=== PATIENT | male | born 1940 | race Two or more races ===

== ENCOUNTER 2018-06-22 10:38 | Outpatient (CLI) | payer OTHER | END 2018-06-22 12:14 | disposition home or self-care (01) | LOC: EKG 10:38 | DX: I10 Essential (primary) hypertension (principal) ==

== ENCOUNTER 2018-06-23 10:21 | Outpatient (CLI) | payer OTHER | END 2018-06-23 10:29 | disposition home or self-care (01) | LOC: RAD 501 10:21 | DX: Z01.811 Encounter for preprocedural respiratory examination (principal) ==

== ENCOUNTER 2018-10-21 07:04 | Inpatient (IN) | payer OTHER ==
[~2018-10-21] VITALS: Ht 177.8 cm; Wt 63.5 kg
[2018-10-24] MEDS ORDERED: DUI500 PO (08:07)
[2018-10-24] MEDS ORDERED: PERCOCET 5-3251 EACH PO (08:07)
[2018-10-24] MEDS ORDERED: ELIQUIS2.5 MG PO (08:07)
== END 2018-10-24 14:48 | DRG 482 ==
LOC: ER 07:04 → SURH 17:30
PROVIDERS: Orthopaedic Surgery; ADMIT Internal Medicine Cardiovascular Disease
PROC: 0QS736Z Reposition Left Upper Femur with Intramedullary Internal Fixation Device, Percutaneous Approach (ICD-10-PCS; principal; 2018-10-22 15:00)
DX: S72.142A Displaced intertrochanteric fracture of left femur, initial encounter for closed fracture (principal); W18.39XA Other fall on same level, initial encounter; M81.0 Age-related osteoporosis without current pathological fracture

== ENCOUNTER 2018-12-10 11:49 | Outpatient (CLI) | payer OTHER ==
[~2018-12-10 11:49] MED LIST: DUI500 PO; ELIQUIS2.5 MG PO; PERCOCET 5-3251 EACH PO
== END 2018-12-10 14:09 | disposition home or self-care (01) ==
LOC: LAB 11:49
DX: L89.623 Pressure ulcer of left heel, stage 3 (principal)

== ENCOUNTER 2019-05-06 10:35 | Emergency (ER) | payer OTHER ==
[~2019-05-06] VITALS: Ht 172.7 cm; Wt 63.5 kg
== END 2019-05-06 14:22 | disposition home or self-care (01) ==
LOC: ER 10:35
DX: R50.9 Fever, unspecified (principal)

== ENCOUNTER 2019-05-10 09:13 | Emergency (ER) | payer OTHER ==
[~2019-05-10] VITALS: Ht 177.8 cm; Wt 63.5 kg
== END 2019-05-10 18:19 | disposition home or self-care (01) ==
LOC: ER 09:13
DX: K29.60 Other gastritis without bleeding (principal)

== ENCOUNTER 2019-06-17 18:32 | Inpatient (IN) | payer OTHER ==
[~2019-06-17] VITALS: Ht 177.8 cm; Wt 64.4 kg
--- NOTE | 2019-06-17 19:02 | NUR ---
SE RECIBE PTE ALERTA Y ORIENTADO X3,REFIERE QUE CUANDO SE MUEVE LE DUELEN LAS RODILLAS,,REFIERE TENER MUCHO SUENO,REFIERE FAMILIAR QUE LE CHAIDEZ DADO FIEBRE.
--- NOTE | 2019-06-17 19:44 | NUR ---
PACIENTE MASCULINO ALERTA Y ORIENTADO, BAJO MEDIDAS ASEPTICAS SE CANALIZA PACIENTE, GERDA DE EDEMA Y ERITEMA. SE LEIF MUESTRAS DE LABORATORIOS LOPEZ ORDENADO. ORDENES TOMADAS POR RN: SOHAN Y EJECUTADAS POR RN. JOHNSTON.
--- NOTE | 2019-06-17 21:38 | NUR ---
SE ORIENTA A PTE SOBRE PROCESO DE ADMINISTRACION DE MED & MIKIE DE MUESTRAS DE UA & INFLUENZA.
--- NOTE | 2019-06-18 00:36 | NUR ---
SE RECIBE PTE ALERTA Y ORIENTADO X3 EN CAMA CON BARANDAS ELEVADAS. SE RECIBE PTE CANALIZADO AREA GERDA DE EDEMA Y DE ENROJECIMIENTO. PTE EN ESPERA DE SERVANDO MUESTRA DE LAB. LOPEZ ORDEN MEDICA A LAS 4:00AM.
--- NOTE | 2019-06-18 08:33 | NUR ---
EVALUADO POR EL SE ORIENTA SOBRE TRATAMIENTO MEDICO POR MRS. GARCÍA SE LE EXTRAEN MUESTRAS DE SANGE Y SE ENVIAN AL LABORATORIOS Y QUE SE VA A TENER EN OBSERVACION POR 24 HORAS. SE MANTIENE EN OBSERVACION.
--- NOTE | 2019-06-18 15:42 | NUR ---
PT ALERTA Y ORIENTADO X3 ESFERAS EN COMPANIA DE FAMILIAR. SE RECIBE EN CAMA CON BARANDAS ELEVADAS Y FRENOS COLOCADOS. HEPARIN LOCK E IVLFUIDS PATENTES. PT TOELRA TX. PENDIENTE ENTREGA DE U/A. BMP A LAS 6AM EL JAKUB DE MANANA. LUEGO DE ELLO, RE-EVALUCION DE DR COX. PT EN OVERNIGHT. PENDIENTE VISTA DE SKIN TEAM.
--- NOTE | 2019-06-18 23:47 | NUR ---
SE RECIBE PACIENTE ALERTA Y ORIENTADO EN CAMA CON BARANDAS ELEVADAS. SE OBSERVA IVF'S PATENTE GERDA DE EDEMA Y ENROJECIMIENTO BAJANDO UN .9NSS@ 100ML/HR. PENDIENTE CONSULTA CON DR. COX Y LAB EN LA MANANA. SE MANTIENE BAJO OBSERVACION POR CAMBIOS.
--- NOTE | 2019-06-19 07:03 | NUR ---
SE RECIBE PTE DE TURNO ANTERIOR EL CUAL SE ENCUENTRA EN CAMA CON BARANDAS ELEVADAS, PTE PRESENTA AREA DE VENOPUNCION, PATENTE Y GERDA DE EDEMA CON IV FLUID PATENTE 0.9NSS AT 100 ML/HR, PTE PEND A ENTREGA DE UA Y CONSULTA CON DR. COX.
== END 2019-07-09 21:32 | DRG 622 ==
LOC: ER 18:32 → SURH 06-19 09:50 → SURG 06-19 09:50 → SURH 06-23 13:21
PROVIDERS: ADMIT Internal Medicine Cardiovascular Disease
PROC: BT43ZZZ Ultrasonography of Bilateral Kidneys (ICD-10-PCS; 2019-06-19)
PROC: 0T9B70Z Drainage of Bladder with Drainage Device, Via Natural or Artificial Opening (ICD-10-PCS; 2019-06-19)
PROC: BW21ZZZ Computerized Tomography (CT Scan) of Abdomen and Pelvis (ICD-10-PCS; 2019-06-20)
PROC: CP1Z1ZZ Planar Nuclear Medicine Imaging of Musculoskeletal System, All using Technetium 99m (Tc-99m) (ICD-10-PCS; 2019-06-21)
PROC: BW28ZZZ Computerized Tomography (CT Scan) of Head (ICD-10-PCS; 2019-06-21)
PROC: 4A12X4Z Monitoring of Cardiac Electrical Activity, External Approach (ICD-10-PCS; 2019-06-21)
PROC: B246ZZZ Ultrasonography of Right and Left Heart (ICD-10-PCS; 2019-06-22)
PROC: 0W9B30Z Drainage of Left Pleural Cavity with Drainage Device, Percutaneous Approach (ICD-10-PCS; 2019-06-23)
PROC: 8E0ZXY6 Isolation (ICD-10-PCS; 2019-06-23)
PROC: 0W9H3ZX Drainage of Retroperitoneum, Percutaneous Approach, Diagnostic (ICD-10-PCS; 2019-06-24)
PROC: 0JBR0ZZ Excision of Left Foot Subcutaneous Tissue and Fascia, Open Approach (ICD-10-PCS; principal; 2019-06-26)
PROC: 3E0F7GC Introduction of Other Therapeutic Substance into Respiratory Tract, Via Natural or Artificial Opening (ICD-10-PCS; 2019-06-27)
PROC: 4A033R1 Measurement of Arterial Saturation, Peripheral, Percutaneous Approach (ICD-10-PCS; 2019-06-27)
PROC: 0W9B30Z Drainage of Left Pleural Cavity with Drainage Device, Percutaneous Approach (ICD-10-PCS; 2019-06-28)
PROC: 0W9B30Z Drainage of Left Pleural Cavity with Drainage Device, Percutaneous Approach (ICD-10-PCS; 2019-06-30)
DX: E87.1 Hypo-osmolality and hyponatremia (principal); I50.23 Acute on chronic systolic (congestive) heart failure; N17.8 Other acute kidney failure; J90 Pleural effusion, not elsewhere classified; I13.0 Hypertensive heart and chronic kidney disease with heart failure and stage 1 through stage 4 chronic kidney disease, or unspecified chronic kidney disease; J98.11 Atelectasis; I67.82 Cerebral ischemia; C79.51 Secondary malignant neoplasm of bone; L97.423 Non-pressure chronic ulcer of left heel and midfoot with necrosis of muscle; C78.6 Secondary malignant neoplasm of retroperitoneum and peritoneum; B95.61 Methicillin susceptible Staphylococcus aureus infection as the cause of diseases classified elsewhere; I08.0 Rheumatic disorders of both mitral and aortic valves; C61 Malignant neoplasm of prostate; N18.2 Chronic kidney disease, stage 2 (mild); I70.0 Atherosclerosis of aorta; K66.0 Peritoneal adhesions (postprocedural) (postinfection); K59.09 Other constipation; M62.81 Muscle weakness (generalized); N13.5 Crossing vessel and stricture of ureter without hydronephrosis; K57.30 Diverticulosis of large intestine without perforation or abscess without bleeding; E86.0 Dehydration; R33.8 Other retention of urine; Z85.528 Personal history of other malignant neoplasm of kidney; Z08 Encounter for follow-up examination after completed treatment for malignant neoplasm; Z90.5 Acquired absence of kidney; Z19.1 Hormone sensitive malignancy status
CPT/HCPCS: 70496

== ENCOUNTER 2019-08-20 18:09 | Inpatient (IN) | payer OTHER ==
[~2019-08-20] VITALS: Ht 177.8 cm; Wt 63.5 kg
== END 2019-08-22 19:09 | disposition expired | DRG 871 ==
LOC: ER 18:09 → ICU-2 08-21 08:10 → ICU 08-21 13:16
PROVIDERS: ADMIT Internal Medicine Cardiovascular Disease
PROC: B246ZZZ Ultrasonography of Right and Left Heart (ICD-10-PCS; principal; 2019-08-21)
PROC: BB24ZZZ Computerized Tomography (CT Scan) of Bilateral Lungs (ICD-10-PCS; 2019-08-21)
PROC: 4A033R1 Measurement of Arterial Saturation, Peripheral, Percutaneous Approach (ICD-10-PCS; 2019-08-22)
DX: A41.1 Sepsis due to other specified staphylococcus (principal); R65.21 Severe sepsis with septic shock; J15.0 Pneumonia due to Klebsiella pneumoniae; E87.1 Hypo-osmolality and hyponatremia; C79.51 Secondary malignant neoplasm of bone; C77.2 Secondary and unspecified malignant neoplasm of intra-abdominal lymph nodes; N39.0 Urinary tract infection, site not specified; J98.11 Atelectasis; E87.2 Acidosis; N17.8 Other acute kidney failure; I50.42 Chronic combined systolic (congestive) and diastolic (congestive) heart failure; I11.0 Hypertensive heart disease with heart failure; E86.0 Dehydration; C61 Malignant neoplasm of prostate; R97.21 Rising PSA following treatment for malignant neoplasm of prostate; R09.02 Hypoxemia; B96.1 Klebsiella pneumoniae [K. pneumoniae] as the cause of diseases classified elsewhere; R31.0 Gross hematuria; Z66 Do not resuscitate; Z74.01 Bed confinement status